=== PATIENT | female | born 1990 | race Caucasian/White ===

== ENCOUNTER 2017-01-20 14:02 | Emergency (ER) | payer OTHER ==
--- NOTE | ~2017-01-20 | EKG ---
PATIENT: KEKE HERNANDEZ UNIT #: [id number] Ventricular Rate: 81 BPM Atrial Rate: 81 BPM P-R Interval: 164 ms QRS Duration: 72 ms Q-T Interval: 384 ms QTC Calculation(Bezet): 446 ms P Deloit: 40 degrees Calculated R Deloit: -19 degrees Calculated T Deloit: 16 degrees Diagnosis Line: Normal sinus rhythm Diagnosis Line: Nonspecific T wave abnormality Diagnosis Line: Abnormal ECG Diagnosis Line: Diagnosis Line: Confirmed by YAYA LEON MD ([id number]) on Diagnosis Line: 02/16/2017 7:08:40 AM INTERPRETING MD: THERESA
[2017-01-20 13:53] LABS: POC - CKMB 1.1 ng/mL (0.0-7.9); POC - MYOGLOBIN 27.5 ng/mL (0.0-169.0); POC - TROPONIN <0.05 ng/mL (<=0.05)
[2017-01-20 13:54] LABS: BASOPHIL% 0.3 % (0-2.5); EOSINOPHIL# 0.3 X10e3 (0-0.7); EOSINOPHIL% 2.5 % (0.0-7.0); HEMATOCRIT 40.9 % (35.0-45.0); HEMOGLOBIN 13.9 gm/dL (12.0-16.0); LYMPHOCYTE# 2.3 X10e3 (1.0-3.5); MEAN CORPUSCULAR HEMOGLOBIN 30.5 PG (28-34); MEAN CORPUSCULAR HGB CONC 33.9 g/dL (30-36); MEAN PLATELET VOLUME 9.5 FL (6.5-11.5); MONOCYTE# 0.9 X10e3 (0-1.0); MONOCYTE% 8.2 % (3.0-12.0); NEUTROPHIL# 7.3 X10e3 (1.5-7.1); PLATELET COUNT 227 X10e3 (140-420); RED BLOOD COUNT 4.55 X10e (3.90-5.30); RED CELL DISTRIBUTION WIDTH 13.8 % (11.0-15.5); WHITE BLOOD COUNT 10.7 X10e3 (4.0-10.5)
[2017-01-20 13:56] LABS: DIFF IND NO
[~2017-01-20 14:02] MED LIST: FLINTSTONES GU1 EACH PO; IBUPROFEN100 MG/51 PO; IRON325 ( 65 ) PO; KEFLEX500 M1 PO; MACROBID100 MG PO; MIRALAX17 GM PO; NO MEDICATIONS; PERCOCET; PREDNISONE PO; TAMIFLU12 MG/ML PO; TESSALON200 MG PO; VOLTAREN50 MG PO; ZANTAC PO; ZITHROMAX PO; ZOFRAN ODT4 MG PO; ZOLOFT PO; ZOVIRAX400 MG PO
[2017-01-20 14:10] LABS: INFLUENZA A NEG (NEG); INFLUENZA B NEG (NEG)
[2017-01-20 14:11] LABS: URINE APPEARANCE CLEAR; URINE BILIRUBIN NEG (NEG); URINE BLOOD NEG (NEG); URINE COLOR YELLOW; URINE GLUCOSE 50 MG/DL (NORM); URINE KETONE NEG (NEG); URINE LEUKOCYTE ESTERASE NEG (NEG); URINE NITRATE NEG (NEG); URINE PROTEIN NEG (NEG)
[2017-01-20 14:14] LABS: MICRO INDICATED? NO; URINE SOURCE CLEAN CATCH
[2017-01-20 14:27] LABS: ALBUMIN SERUM 4.2 g/dL (3.5-5.0); BILIRUBIN, DIRECT 0.1 mg/dL (0.0-0.2); BILIRUBIN,INDIRECT 0.6 mg/dL (0.0-0.9); BILIRUBIN,TOTAL 0.7 mg/dL (0.2-2.0); CALCIUM SERUM 9.2 mg/dL (8.4-10.2); CREATININE SERUM 0.3 mg/dL (0.6-1.4); POTASSIUM 3.7 mmol/L (3.5-5.1); PROTEIN TOTAL SERUM 6.8 g/dL (6.0-8.3)
== END 2017-01-20 16:37 | disposition home or self-care (01) ==
LOC: SED 14:02
PROVIDERS: Emergency Medicine
DX: E86.0 Dehydration (principal); R42 Dizziness and giddiness
CPT/HCPCS: 36415; 80048; 80076; 81003; 82553; 83874; 84484; 85025; 87804; 93005; 96374; 99284; J2405

== ENCOUNTER 2017-05-15 21:54 | Emergency (ER) | payer OTHER ==
[~2017-05-15] VITALS: Ht 134.6 cm; Wt 36.3 kg
--- NOTE | ~2017-05-15 | CR206 ---
[facility]. [facility] A Service of [facility] & [facility] RADIOLOGY TEXT RESULTS PATIENT: KEKE HERNANDEZ LOCATION: SED : [birth year] UNIT #: [id number] AGE: [address]: Lio Estrada MD SEX: F ORDER DR: [id number] [place] [id number] E MR#: [id number] Acc #: [id number] NAME: KEKE HERNANDEZ : 1990 SEX: F STUDY DATE/TIME: 05/15/2017 22:36 UNIT: SED ROOM: STUDY DESCRIPTION: CR Pelvis 1 or 2 Views Attending Physician: Lio Estrada M.D. Ordering Physician: Lio Estrada M.D. Primary Care Physician: Andrei Han M.D. MEDICAL IMAGING REPORT This report is preliminary unless electronic signature is present. EXAM Pelvis series INDICATION Pelvic pain after a fall today. PROCEDURE Single frontal view of the pelvis COMPARISON None FINDINGS No fracture or dislocation. IMPRESSION No acute findings. Dictated by... Lane Martinez M.D. THIS IS AN ELECTRONICALLY VERIFIED REPORT Lane Martinez M.D. at 05/16/2017 9:53 PM Rosey TD: 05/16/2017 13:23 JOB #: [id number] MEDICAL IMAGING REPORT Page 1 of 1
--- NOTE | ~2017-05-15 | CR183 ---
[facility]. [facility] A Service of [facility] & [facility] RADIOLOGY TEXT RESULTS PATIENT: KEKE HERNANDEZ LOCATION: SED : [birth year] UNIT #: [id number] AGE: [address]: Lio Estrada MD SEX: F ORDER DR: [id number] [address] [address] [id number] E MR#: [id number] Acc #: [id number] NAME: KEKE HERNANDEZ : 1990 SEX: F STUDY DATE/TIME: 05/15/2017 22:36 UNIT: SED ROOM: STUDY DESCRIPTION: CR Lumbar Spine Cross Table La Attending Physician: Lio Estrada M.D. Ordering Physician: Lio Estrada M.D. Primary Care Physician: Andrei Han M.D. MEDICAL IMAGING REPORT This report is preliminary unless electronic signature is present. EXAM Lumbar spine, cross-table lateral view. INDICATIONS Back pain after a fall today. PROCEDURE A single cross-table lateral view of the lumbar spine. COMPARISON None. FINDINGS The lumbar bodies have preserved height and alignment is preserved. IMPRESSION No acute findings. Dictated by... Lane Martinez M.D. THIS IS AN ELECTRONICALLY VERIFIED REPORT Lane Martinez M.D. at 05/16/2017 9:53 PM EED/lonny TD: 05/16/2017 13:23 JOB #: [id number] MEDICAL IMAGING REPORT Page 1 of 1
--- NOTE | ~2017-05-15 | CR243 ---
[facility] A Service of [facility] & [facility] RADIOLOGY TEXT RESULTS PATIENT: KEKE HERNANDEZ LOCATION: SED : [birth year] UNIT #: [id number] AGE: [address]: Lio Estrada MD SEX: F ORDER DR: [id number] [place] [id number] E MR#: [id number] Acc #: [id number] NAME: KEKE HERNANDEZ : 1990 SEX: F STUDY DATE/TIME: 05/15/2017 22:36 UNIT: SED ROOM: STUDY DESCRIPTION: CR Thoracic Spine 3 Views Attending Physician: Lio Estrada M.D. Ordering Physician: Lio Estrada M.D. Primary Care Physician: Andrei Han M.D. MEDICAL IMAGING REPORT This report is preliminary unless electronic signature is present. EXAM Thoracic spine series INDICATIONS Back pain after a fall today procedure TECHNIQUE Three views of the thoracic spine COMPARISON None FINDINGS Stable mild levocurvature of the upper thoracic spine. The lumbar bodies have normal height. Alignment is otherwise preserved. IMPRESSION No acute findings. Stable mild levocurvature of the thoracic spine. Dictated by... Lane Martinez M.D. THIS IS AN ELECTRONICALLY VERIFIED REPORT Lane Martinez M.D. at 05/16/2017 9:53 PM RIGO/khushboo TD: 05/16/2017 13:23 JOB #: [id number] MEDICAL IMAGING REPORT Page 1 of 1
--- NOTE | ~2017-05-15 | CR219 ---
[facility] A Service [facility] RADIOLOGY TEXT RESULTS PATIENT: KEKE HERNANDEZ LOCATION: SED : [birth year] UNIT #: [id number] AGE: [address]: Lio Estrada MD SEX: F ORDER DR: [id number] [place] [id number] E MR#: [id number] Acc #: [id number] NAME: KEKE HERNANDEZ : 1990 SEX: F STUDY DATE/TIME: 05/15/2017 22:36 UNIT: SED ROOM: STUDY DESCRIPTION: CR Sacrum and Coccyx Min 2 Vie Attending Physician: Lio Estrada M.D. Ordering Physician: Lio Estrada M.D. Primary Care Physician: Andrei Han M.D. MEDICAL IMAGING REPORT This report is preliminary unless electronic signature is present. EXAM Sacrum and coccyx series INDICATION Sacral and coccygeal pain after a fall today. PROCEDURE Three-view sacrum and coccyx. COMPARISON None. FINDINGS The sacrum is mostly obscured by stool and bowel gas on the frontal views. No visible displaced sacral or coccygeal fracture on the lateral view. IMPRESSION Sacrum and coccyx are obscured by bowel gas on the frontal views but no definite displaced fracture seen on the lateral view. Dictated by... Lane Martinez M.D. THIS IS AN ELECTRONICALLY VERIFIED REPORT Lane Martinez M.D. at 05/16/2017 9:53 PM EED/char TD: 05/16/2017 13:36 JOB #: [id number] [facility] A Service [facility] RADIOLOGY TEXT RESULTS PATIENT: KEKE HERNANDEZ LOCATION: SED : [birth year] UNIT #: [id number] AGE: [address]: Lio Estrada MD SEX: F ORDER DR: MEDICAL IMAGING REPORT Page 1 of 1
== END 2017-05-15 23:45 | disposition home or self-care (01) ==
LOC: SED 21:54
DX: S30.0XXA Contusion of lower back and pelvis, initial encounter (principal); S20.229A Contusion of unspecified back wall of thorax, initial encounter; F32.9 Major depressive disorder, single episode, unspecified; W20.8XXA Other cause of strike by thrown, projected or falling object, initial encounter
CPT/HCPCS: 72020; 72072; 72170; 72220; 99283